=== PATIENT | female | born 1940 | race Caucasian/White ===

== ENCOUNTER 2016-07-13 11:48 | Emergency (ER) | payer MEDICARE ==
[~2016-07-13] VITALS: Ht 162.6 cm; Wt 75.9 kg
[2016-07-13 11:55] VITALS: BP 138/80; PULSE 60; RESP 16; O2SAT 95
[2016-07-13] MEDS ORDERED: HYDR25TA4 PO (12:15)
[2016-07-13] MEDS ORDERED: ATEN100T PO (12:15)
[2016-07-13] MEDS ORDERED: CHOL200025 PO (12:15)
[2016-07-13] MEDS ORDERED: SIMV10TA4 PO (12:15)
[2016-07-13] MEDS ORDERED: OMEP20TA86 PO (12:15)
[2016-07-13] MEDS ORDERED: CRAN300T PO (12:15)
[2016-07-13] MEDS ORDERED: ALPR0.5T8 PO (12:15)
[2016-07-13] MEDS ORDERED: VITA1TAB47 PO (12:15)
[2016-07-13] MEDS ORDERED: ASPI-973 PO (12:15)
[2016-07-13] MEDS ORDERED: AMLO10TA3 PO (12:15)
[2016-07-13] MEDS ORDERED: CALC-762 PO (12:15)
[2016-07-13] MEDS ORDERED: DOCU-41 PO (12:15)
[2016-07-13] MEDS ORDERED: CITA40TA13 PO (12:15)
[2016-07-13 14:24] VITALS: BP 136/79; PULSE 59; RESP 16; O2SAT 95
--- NOTE | 2016-07-13 14:41 | ED.REPORT ---
HPI-Extremity Problem Upper Date of Service Jul 13, 2016 ED Provider: Jam Holcomb MD A pleasant 75 year old female with a history of carpal tunnel and osteoarthritis presents to the ER accompanied by her complaining of several months of gradually worsening intermittent left arm pain and tingling for the "last couple months", worsening yesterday with left hand pain. She also reports weakness in the affected extremity onset around 06:00-06:30 this morning. Symptoms have been treated with ASA with no relief. Usually she sleeps on her left side, but was unable to last night due to her symptoms. Patient denies neck trauma, tingling/weakness/numbness in any other extremities, changes in speech, visual disturbances, and difficulty swallowing. reports ligamentous injury to the right foot some years ago. He denies any changes in the patient's behavior, and any symptoms of stroke. Nursing Notes Stated Complaint: MUSCULOSKELETAL PAIN/SENT FROM URGENT CARE Chief Complaint: Extremity Trauma Nursing Notes Reviewed: Yes Allergies: Coded Allergies: Sulfa (Sulfonamide Antibiotics) (Verified Adverse Reaction, Mild, blood in urine, 07/13/16) Uncoded Allergies: "TUSSINS" (Allergy, Unknown, diaphoresis, syncope, 07/13/16) Scheduled Amlodipine (Amlodipine) 10 Mg Tablet 10 MG PO QPM Aspirin (Aspirin) 81 Mg Tablet 81 MG PO QPM Atenolol (Atenolol) 100 Mg Tablet 100 MG PO QAM B Complex with Vitamin C (Vitamin B-Complex & C) 1 Each Tablet.er 1 EACH PO DAILY Calcium Carbonate/Vitamin D3 (Calcium 1,000 + D3 Caplet) 1 Each Tablet 1 EACH PO DAILY Cholecalciferol (Vitamin D3) (Vitamin D3) 2,000 Unit Tablet 2,000 UNIT PO QPM Citalopram (Citalopram) 40 Mg Tablet 40 MG PO QAM Cranberry Extract (Cranberry) 300 Mg Tablet 300 MG PO TID Docusate Sodium (Colace) 100 Mg Capsule 100 MG PO QPM Hydrochlorothiazide (Hydrochlorothiazide) 25 Mg Tablet 25 MG PO QAM Omeprazole (Omeprazole) 20 Mg Tablet.dr 20 MG PO BID Simvastatin (Simvastatin) 10 Mg Tablet 10 MG PO QPM Scheduled PRN Alprazolam (Alprazolam) 0.5 Mg Tablet 0.5 MG PO TID PRN PRN For Anxiety General Time Seen by MD: 14:41 Chief Complaint Arm injury left Hx Obtained From: Patient Arrived By: Walk-in Onset Occurred: Yesterday Symptom Duration: Since onset Location: : Arm left: Hand left Quality: Painful Severity: Current: Moderate Severity: Maximum: Moderate Associated with: Reports: Numb extremities, Denies: Neck pain Pertinent Negative: Pt denies other symptoms Similar Sx Previous: Yes Past Medical History Past Medical History Osteoarthritis Carpal tunnel Review of Systems Musculoskeletal: Reports: Extremity pain, Denies: Back pain, Joint pain, Lumbar pain, Neck pain, Thoracic pain Neurologic: Reports: Focal weakness (Left Upper Extremity), Numbness (Left Upper Extremity), Denies: Change LOC, Slurred speech, Unable to speak, Vision change Complete sys rev & neg: except as marked. Physical Exam Initial Vital Signs Vital Signs (First) Date Time Temp Pulse Resp B/P Pulse Ox O2 Delivery O2 Flow Rate FiO2 07/13/16 11:55 36.7 60 16 138/80 95 Room Air Initial VS: Reviewed General/Constitutional: Well-developed, Well-nourished Head / Eyes: Atraumatic, Normocephalic Neck: Supple, Non-tender, Full range of motion Lower Extremities: Vascular intact, Neuro intact, No swelling, No tenderness Skin: Warm, Dry, No cyanosis Neurologic: Alert, Oriented, Nonfocal Upper Extremity / MS: Atraumatic, Full range of motion, No deformity, Neurologic intact, Vascular intact Wrist / Hand: Atraumatic, Full range of motion, No deformity, Neurologic intact , Vascular intact Wasting of the muscle in the Left thenar eminence. Neurologic: Oriented X3, Speech NL, No motor deficits, No sensory deficits, CN II - XII intact Strength 5/5 in all 4 extremities. See NIH Stroke Scale in the Risk section of this note. NIH Stroke Scale Level of Consciousness: Alert and responsive (0) Ask Month & Age: Both questions right (0) Open/Close Eyes/Hand Online Community Manager: Performs both tasks (0) Horizontal EO Movements: None (0) Visual Motley: No visual loss (0) Facial Palsy: Normal symmetry (0) Right Arm Motor Drift (10s): No drift 10 sec (0) Left Arm Motor Drift (10s): No drift 10 sec (0) Right Leg Motor Drift (5s): No drift 5 sec (0) Left Leg Motor Drift (5s): No drift 5 sec (0) Limb Ataxia FNF/Heel-Gómez: No ataxia (0) Sensation (Arms/Legs/Face): No sensory loss (0) Language Aphasia: No aphasia, normal (0) Dysarthria: No dysarthria, normal (0) Extinction/Inattention: No exctinct/inattent (0) NIHSS Score: 0 Time NIHSS Performed: 15:15 Date NIHSS Performed: Jul 13, 2016 Interpretation & Diagnostics ECG Interpretation Time: 14:59 Interpreted by: ED physician Normal ECG Interpretation: Normal rate, Normal sinus rhythm, No acute ischemic changes, Normal QRS, Normal axis, Normal intervals, No change from prior ECGs, Adequate tracing Re-Eval/Medical Decision Med Decision/Clinical Course 75-year-old female history of carpal tunnel c/o of left hand pain. Reports numbness in left hand for quite some time. Today with some pain which she has had in the past with carpal tunnel. She reports subjective left upper extremity weakness. Her neurological exam is completely intact. Her strength is 5 out of 5. Her stroke scale is 0. She has no headache. She has no neck tenderness. Symptoms improved with heating pad. Likely musculoskeletal versus carpal tunnel. Do not suspect a CVA given normal stroke scale and normal exam and her history though I discussed with patient that I cannot rule out out with out imaging she would prefer to hold off on this. She will follow up with primary doctor with return precautions. She has a wrist brace that she will use. Re-Evaluation/Progress : Time of Eval: 15:22 Re-Evaluation/Progress Note: Discussed physical examination findings and plan to discharge. Patient is amenable to the plan. Return precautions given. All other questions addressed. Counseled Regarding: Diagnosis, Need for follow-up, When/why to return to ED Discharge & Departure Impression: Primary Impression: Carpal tunnel syndrome Additional Impression: Hand pain, left Disposition: Home Discharge Condition All VS Reviewed: Yes Condition: Stable Patient Instructions: Carpal Tunnel Syndrome (DC), Carpal Tunnel Syndrome Exercises (GEN) Additional Instructions: Your workup today was reassuring. I do not believe that there is any dangerous cause for your symptoms at this time. I think that your pain and tingling is likely due to carpal tunnel. Wear your brace to see if symptoms improve. Use your heating pad as needed for pain. Take ibuprofen or Tylenol as directed for pain. Call your primary care provider to arrange a follow-up appointment for Sunday for re-evaluation. Return to the ER if you develop worsening or uncontrollable pain, worsening numbness/tingling/weakness, changes in vision or speech, difficulty swallowing, headache, confusion, or any other concerning symptoms. Referrals: Wander Vazquez MD (PCP) Yadira Attestation Portions of this note were transcribed by Gavin Wise. I, Dr. Holcomb, personally performed the history, physical exam and medical decision-making; I reviewed and confirmed the accuracy of the information in the transcribed note. Signed by: Yadira Chapin, 07/13/2016 - 15:27 copies to: Wander Vazquez MD, Ben M MD Jul 13, 2016 14:41 GAVIN WISE Jul 13, 2016 15:15
== END 2016-07-13 16:08 | disposition home or self-care (01) ==
LOC: SED 11:48
DX: G56.02 Carpal tunnel syndrome, left upper limb (principal); M79.642 Pain in left hand; M62.81 Muscle weakness (generalized); Z79.82 Long term (current) use of aspirin; Z88.2 Allergy status to sulfonamides